=== PATIENT | male | born 1935 | race Caucasian/White ===

== ENCOUNTER 2020-01-11 22:57 | Emergency (ER) | payer OTHER ==
[~2020-01-11] VITALS: Ht 167.6 cm; Wt 63.5 kg
[2020-01-11] MEDS ORDERED: PLAVIX75 MG (23:01)
[2020-01-11] MEDS ORDERED: ZOCOR20 MG (23:01)
[2020-01-11] MEDS ORDERED: TAMS0.4C (23:01)
[2020-01-11] MEDS ORDERED: INTEGRA F CAPS1 EACH (23:01)
[2020-01-11] MEDS ORDERED: LOSARTAN POTASS25 MG (23:01)
== END 2020-01-11 23:54 | disposition home or self-care (01) ==
LOC: ER 22:57
DX: S70.01XA Contusion of right hip, initial encounter (principal); S80.01XA Contusion of right knee, initial encounter; R07.89 Other chest pain; M79.604 Pain in right leg; W18.09XA Striking against other object with subsequent fall, initial encounter; Y93.89 Activity, other specified; Y92.018 Other place in single-family (private) house as the place of occurrence of the external cause; Y99.8 Other external cause status

== ENCOUNTER 2021-02-16 11:31 | Inpatient (IN) | payer OTHER ==
[~2021-02-16] VITALS: Ht 165.1 cm; Wt 59.0 kg
[~2021-02-16 11:31] MED LIST: INTEGRA F CAPS1 EACH; LOSARTAN POTASS25 MG; PLAVIX75 MG; TAMS0.4C; ZOCOR20 MG
[2021-02-19] MEDS ORDERED: ATORVASTATIN CA40 MG (09:34)
[2021-02-19] MEDS ORDERED: DICLOFENAC POTA50 MG (09:34)
[2021-02-19] MEDS ORDERED: TRAZODONE HCL50 MG (09:34)
== END 2021-02-19 14:31 | DRG 536 ==
LOC: ER 11:31 → SURH 21:41
PROVIDERS: ADMIT Internal Medicine; ATTEND Internal Medicine
DX: S32.591A Other specified fracture of right pubis, initial encounter for closed fracture (principal); I69.851 Hemiplegia and hemiparesis following other cerebrovascular disease affecting right dominant side; W18.30XA Fall on same level, unspecified, initial encounter; Z20.822 Contact with and (suspected) exposure to COVID-19; G30.9 Alzheimer's disease, unspecified; F02.80 Dementia in other diseases classified elsewhere, unspecified severity, without behavioral disturbance, psychotic disturbance, mood disturbance, and anxiety; Z74.01 Bed confinement status; I11.9 Hypertensive heart disease without heart failure

== ENCOUNTER 2022-10-21 12:50 | Emergency (ER) | payer OTHER ==
[~2022-10-21] VITALS: Ht 165.1 cm; Wt 49.9 kg
[~2022-10-21 12:50] MED LIST changes: +ATORVASTATIN CA40 MG; +DICLOFENAC POTA50 MG; +TRAZODONE HCL50 MG
[2022-10-21] MEDS ORDERED: HYDROCHLOROTH12.5 MG PO (18:49)
== END 2022-10-21 19:50 | disposition home or self-care (01) ==
LOC: ER 12:50
DX: R06.02 Shortness of breath (principal); I10 Essential (primary) hypertension; Z86.73 Personal history of transient ischemic attack (TIA), and cerebral infarction without residual deficits; E78.00 Pure hypercholesterolemia, unspecified; G30.9 Alzheimer's disease, unspecified; F02.80 Dementia in other diseases classified elsewhere, unspecified severity, without behavioral disturbance, psychotic disturbance, mood disturbance, and anxiety; I11.9 Hypertensive heart disease without heart failure; I35.0 Nonrheumatic aortic (valve) stenosis; I05.0 Rheumatic mitral stenosis

== ENCOUNTER 2022-10-24 14:20 | Inpatient (IN) | payer OTHER ==
[~2022-10-24] VITALS: Ht 167.6 cm; Wt 45.4 kg
[~2022-10-24 14:20] MED LIST changes: +HYDROCHLOROTH12.5 MG PO
[2022-10-25] MEDS ORDERED: DONEPEZIL HCL5 MG (10:25)
[2022-10-28] MEDS ORDERED: TAMS0.4C PO (11:21)
[2022-10-28] MEDS ORDERED: LOVENOX30 MG/0.3 SUBCUTANEO (11:21)
[2022-10-28] MEDS ORDERED: ARICEPT10 MG PO (11:21)
[2022-10-28] MEDS ORDERED: INTEGRA F CAPS1 EACH PO (11:22)
[2022-10-28] MEDS ORDERED: FUROSEMIDE20 MG PO (11:22)
[2022-10-28] MEDS ORDERED: COZAAR50 MG PO (11:22)
[2022-10-28] MEDS ORDERED: PROTONIX40 MG PO (11:22)
[2022-10-28] MEDS ORDERED: TRAZODONE HCL50 MG PO (11:22)
[2022-10-28] MEDS ORDERED: TOPROL XL25 M1 PO (11:22)
== END 2022-10-28 12:34 | disposition designated cancer center or children's hospital (05) | DRG 291 ==
LOC: ER 14:20 → ICU-2 19:09 → ICU 19:09 → MEDI 10-26 14:21
PROVIDERS: ADMIT Internal Medicine; ATTEND Internal Medicine
PROC: 4A12X4Z Monitoring of Cardiac Electrical Activity, External Approach (ICD-10-PCS; principal; 2022-10-26)
DX: I11.0 Hypertensive heart disease with heart failure (principal); I50.31 Acute diastolic (congestive) heart failure; I69.951 Hemiplegia and hemiparesis following unspecified cerebrovascular disease affecting right dominant side; I35.0 Nonrheumatic aortic (valve) stenosis; E86.0 Dehydration; D64.9 Anemia, unspecified; Z20.822 Contact with and (suspected) exposure to COVID-19; E03.9 Hypothyroidism, unspecified; G30.9 Alzheimer's disease, unspecified; F02.80 Dementia in other diseases classified elsewhere, unspecified severity, without behavioral disturbance, psychotic disturbance, mood disturbance, and anxiety; L89.152 Pressure ulcer of sacral region, stage 2